=== PATIENT | female | born 1970 | race African-American/Black ===

== ENCOUNTER 2016-07-27 15:27 | Inpatient (IN) | payer OTHER ==
--- NOTE | ~2016-07-27 | DS ---
Unit #: [id number] #: [id number] Patient: GIOVANNI AHMADI [id number] [address] [address] [id number] I MR#: [id number] NAME: GIOVANNI AHMADI ROOM: 572 Age: 45 Sex: F Admission Date: 07/27/2016 : 1970 Discharge Date: 07/29/2016 Attending Physician: Corey Wilson M.D. Primary Care Physician: No Primary Care Physician DISCHARGE SUMMARY REASON FOR ADMISSION Abdominal pain/chest pain. HISTORY OF PRESENT ILLNESS/HOSPITAL COURSE The patient is a 45-year-old female, very pleasant, with a prior history of insulin-dependent diabetes and hypertension. Presented initially with a 5- to 6-day history of increasing abdominal pain, chest pain, as well as intractable nausea, vomiting. She was noted not to have any of her routine medications, including her insulin, for approximately 6 months secondary to insurance issues. She states in the past she had been diagnosed with gastroparesis, as well as secondary to her prior history of insulin-dependent diabetes some sort of kidney issues. She had a prior history of a CVA approximately 15 years ago with some residual left-sided weakness of her hand; otherwise, she states that she was in her usual state of health until several days ago when she began developing the above symptoms. Subsequently she was placed on telemetry floor. Routine initial laboratory studies yielded a hemoglobin A1C elevated to 13.3. Initially she was placed on insulin drip, which was later transitioned into subcu Lantus, as well as medium dose sliding scale. Diet was subsequently initiated, which she tolerated well. Please note she was initially placed on DKA protocol. Initial plan was for the patient to be placed in ICU; however, her blood sugars did improve. Her anion gap closed subsequently; thus, the decision was made for her to be placed on telemetry floor. Please also note the patient was on an insulin pump in the past. Unfortunately, she could not get refills for the insulin pump secondary to insurance reasons. While on telemetry floor, her sugars improved. She was gradually transitioned to a NovoLog/Levemir regimen. Her nausea and vomiting have now improved. She is now tolerating regular diet. We will have care management and/or social work help patient with cost of medications. I will give her prescriptions for Levemir, NovoLog, as well as Reglan, and Norvasc for her blood pressure at time of discharge. I have also asked her to follow up in the transition clinic here within 2 Unit #: [id number] #: [id number] Patient: GIOVANNI AHMADI for Accu-Cheks and/or blood glucose review. At time of discharge her creatinine currently stands at 1.5, likely representing her baseline. Hemoglobin is at 10.6, also likely representing her baseline. Hemoglobin A1C 13.3. FINAL DISCHARGE DIAGNOSES 1. Diabetic ketoacidosis, now resolved. 2. Insulin-dependent diabetes. 3. Noncompliance with medications secondary to insurance or lack thereof. 4. Prior history of diabetic gastroparesis. 5. Prior history of cerebrovascular accident 15 years ago. 6. Residual left-sided weakness. 7. Hypertension. 8. Morbid obesity. FINAL DISCHARGE MEDICATIONS 1. Norvasc 5 mg p.o. q.h.s. 2. Levemir 15 units subcu b.i.d. 3. NovoLog 5 units t.i.d. with meals. 4. Reglan 5 mg p.o. q.a.c. 5. Aspirin 81 mg daily. 6. Protonix 40 mg p.o. daily. 7. Levaquin 500 mg p.o. daily x5 days. NOTE: Initial urinalysis was positive. Urine culture is currently pending. We will follow up with this at the transition clinic. DISCHARGE CONDITION Stable. DISCHARGE DISPOSITION Home. Dictated by... Corey Wilson M.D. REX/radha TD: 07/30/2016 08:02 JOB #: [id number] DISCHARGE SUMMARY Page 1 of 1 X Corey Wilson MD X DISCHARGE SUMMARY
--- NOTE | ~2016-07-27 | EKG ---
PATIENT: GIOVANNI AHMADI UNIT #: [id number] Ventricular Rate: 96 BPM Atrial Rate: 96 BPM P-R Interval: 140 ms QRS Duration: 76 ms Q-T Interval: 368 ms QTC Calculation(Bezet): 464 ms P [place]: 49 degrees Calculated R [place]: 1 degrees Calculated T [place]: 55 degrees Diagnosis Line: Normal sinus rhythm Diagnosis Line: Possible Left atrial enlargement Diagnosis Line: Borderline ECG Diagnosis Line: No previous ECGs available Diagnosis Line: Confirmed by YUNIOR COTA MD ([id number]) on Diagnosis Line: 07/27/2016 10:59:36 PM INTERPRETING MD: DONALD
--- NOTE | ~2016-07-27 | CR72 ---
[facility] A Service of [facility] & [facility] RADIOLOGY TEXT RESULTS PATIENT: GIOVANNI AHMADI LOCATION: [place] [address] : [birth year] UNIT #: [id number] AGE: [address]: Danyell Hernandez MD SEX: F ORDER DR: [id number] [facility] [address] [facility]. [place], [place] [address] [id number] I MR#: [id number] Acc #: [id number] NAME: GIOVANNI AHMADI : 1970 SEX: F STUDY DATE/TIME: 07/27/2016 22:01 UNIT: CEDOF ROOM: 98381 STUDY DESCRIPTION: CR Chest Single View Portable Attending Physician: Danyell Hernandez M.D. Ordering Physician: Danyell Hernandez M.D. Primary Care Physician: Primary Care Physician No MEDICAL IMAGING REPORT This report is preliminary unless electronic signature is present EXAM Chest x-ray, 07/27/16 HISTORY 45-year-old female with reported diabetic ketoacidosis. She complains of a 5-day history of chest pain, shortness of air and abdomen pain. TECHNIQUE AP portable chest x-ray. FINDINGS Heart size and pulmonary vascularity are within normal limits given AP portable technique. The lungs appear clear. No visible pulmonary infiltrate or pleural effusion. IMPRESSION Negative chest. Dictated by... Austyn Maldonado M.D. THIS IS AN ELECTRONICALLY VERIFIED REPORT Austyn Maldonado M.D. at 07/28/2016 6:02 AM JACQUES/melvin TD: 07/28/2016 02:21 JOB #: [id number] MEDICAL IMAGING REPORT Page 1 of 1 COPY
--- NOTE | ~2016-07-27 | HP ---
Unit #: [id number] #: [id number] Patient: GIOVANNI AHMADI [id number] [place], [place] [address] [id number] I MR#: [id number] NAME: GIOVANNI AHMADI ROOM: 94302 Age: 45 Sex: F Admission Date: 07/27/2016 : 1970 Attending Physician: Danyell Hernandez M.D. Primary Care Physician: No Primary Care Physician HISTORY AND PHYSICAL CHIEF COMPLAINT Abdominal pain and chest pain. HISTORY OF PRESENT ILLNESS Miss Ahmadi is a 45-year-old -[place] female with history of a stroke, also a history of insulin dependent diabetes and hypertension, who presents with a five to six day history of abdominal pain and chest pain. Patient states that she developed increasing abdominal pain and chest pain about five to six days ago. She describes her chest pain as squeezing that is constant. She thought she was dehydrated as she has had that before. She also states that she was having abdominal pain with nausea and states she even was vomiting come coffee-ground emesis. She denies any triggering factors, denies any previous illness or any sick contacts. She admits that she lost her insurance about six months ago where she was on an insulin pump and has not been on anything for her diabetes since she lost her insurance six months ago. She denies any polyuria or polydipsia. She admits that she has fallen three times in the past few days because she has been weak and she has been staying in her bed most of thew time. She feels like her left-sided weakness is worse. She admits that about 15 years ago she had a stroke that affected her left side and she states that she has some residual left-sided weakness where she cannot type well because of weakness in her left hand but feels that her left-sided weakness might be a little worse. Again she has not been on any medication. She states a year ago though she did have a stress test with Dr. Carballo, the road gang supervisor, and was told that it was fine. Otherwise she denies any other complaint except that she is just having increasing pain. PAST MEDICAL HISTORY Her past medical history is significant for insulin dependent diabetes where she had been on an insulin pump where she stopped that six months ago. She has a history of diabetic gastroparesis, history of a stroke 15 years ago with some residual left-sided weakness of her hand. She has a history of pancreatitis and hypertension. She has also had a . She has had three arthroscopies on her right knee and she has had her gallbladder removed. ALLERGIES Metformin. HOME MEDICATIONS Her home medications are currently none but she had been on an insulin pump as well as some medications for blood pressure. Unit #: [id number] #: [id number] Patient: GIOVANNI AHMADI FAMILY HISTORY Her family history is significant for diabetes. Her maternal grandfather had a myocardial infarction, maternal grandmother had end-stage renal disease and her mother had breast cancer. SOCIAL HISTORY No tobacco, alcohol or drug use. REVIEW OF SYSTEMS CONSTITUTIONAL: No fevers, chills. Nausea and vomiting as described above. HEENT: No blurred vision. No hearing difficulties, dysphagia or rhinorrhea. PULMONARY: She states that she is having some difficulty breathing with her chest pain but no past medical history of any breathing probes. CARDIOVASCULAR: Again she saw Dr. Carballo a year ago where she had a stress test done and was told it was fine. No history of palpitation. GASTROINTESTINAL: As described above. GENITOURINARY: No dysuria or hematuria. MUSCULOSKELETAL: She states she normally ambulates without the need for a cane or a walker. Again she does have some residual left-sided weakness, particularly of her left hand, from her previous stroke. NEUROLOGIC: No current seizure disorder. No numbness or tingling. Again weakness as described above. ENDOCRINE: Again she is diabetic. No thyroid or adrenal abnormalities. HEMATOLOGIC: No known bleeding or bruising abnormalities. PHYSICAL EXAMINATION VITAL SIGNS: Her temp was 98.4, pulse is 99, respiratory rate is 14. Her blood pressure at the time of her arrival in the ED was 165/117 however while I was talking to her systolic was ranging anywhere from 177 up to 195 over the 1-teens. She was 98% however when she is moving around her O2 sats drop into the 80s and she is on 2 L currently. GENERAL APPEARANCE: She is a 45-year-old -[place] female who is awake, alert, in no acute distress. HEENT: Normocephalic and atraumatic. Extraocular movements are intact. Pupils equal, round and reactive to light and accommodation. Nose and throat within normal limits except her mucous membranes are dry. NECK: Supple. No JVD, bruits or cervical lymphadenopathy. CHEST: Chest has decreased breath sounds bilateral bases. CARDIOVASCULAR: S1, S2 are normal. She has a regular rate and rhythm. ABDOMEN: Abdomen is soft, obese, mildly tender in the epigastrium but no rebound or guarding. EXTREMITIES: Show no cyanosis, clubbing or edema. MUSCULOSKELETAL: She moves all four extremities without difficulty. She does have very slight left-sided director card strength that is weaker than the right. SKIN: She has no visible rashes or lesions though she has some dryness, particularly of her feet. NEUROLOGIC: Neurologically she is oriented x3. Sensory motor appear to be intact. DIAGNOSTIC STUDIES LABORATORY: Her laboratory work includes a sodium of 129, potassium was 4.0, chloride 90, bicarb 27, BUN and creatinine of 21 and 1.5 with a glucose of 525, her calcium was 9.2, total protein 7.9, albumin 3.3, total bilirubin 0.8, AST is 15, ALT is 16, alkaline phosphatase is 131, amylase is 23, lipase is 43. Her troponins were pending at the time of this Unit #: [id number] #: [id number] Patient: GIOVANNI AHMADI. Her white count was 10.2, hemoglobin and hematocrit 14.1 and 42.4 with a platelet count of 405, 76 neutrophils, 15 lymphocytes. Urinalysis revealed positive nitrites, 3+ protein, greater than 1000 glucose, trace ketones, 0.2 urobilinogen, 1+ blood, 4+ bacteria. CARDIOVASCULAR: Her EKG showed a normal sinus rhythm, heart rate in the 90s. She had no ST or T-wave changes. 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 She also has a urinary tract infection, chest pain and abdominal pain. PLAN 1. DKA secondary to insulin dependent diabetes mellitus that is uncontrolled due to noncompliance with medication: Again she was on an insulin pump about six months ago but eason she lost her insurance she has been off all of her medications including her insulin therefore she will need an insulin drip at this point as she has some mild acidosis, will continue her IV fluids, will monitor closely, will check her A1C. 2. Acute kidney injury secondary to volume depletion that was present on admission: Will continue her IV fluids. Will monitor closely. 3. UTI: I will follow up the urine culture that has already been done here in the emergency department. She will continue the IV antibiotics that have been started as well. 4. Hypertension: Will restart blood pressure medications as she states that she stopped her medications again six months ago when she lost her insurance. 5. Abdominal pain with intractable nausea and vomiting secondary to DKA and gastroparesis: Will start IV Reglan. Will control her symptomatically for now. She states she had hematemesis but her hemoglobin is currently normal. Will start a PPI. Will monitor for now. If her abdominal pain continues to persist despite symptomatic treatment as well as correction of her DKA then she may need imaging for further evaluation. 6. Chest pain: She states she has had a stress test at least a year ago with Dr. Carballo that was negative. Her EKG currently is negative however her troponins are pending as they are having difficulty obtaining her labs in the emergency department. Her symptoms could be due to her DKA. However, if her workup with her troponins are negative or her EKG changes she may need a cardiology evaluation. 7. History of CVA: Will monitor for now. Given her history of CVA will go ahead and restart an aspirin, check her lipid profile and correct her sugar. 8. Disposition: I suspect she will likely need help with her medications at the time of discharge as her noncompliance is what prompted this admission. Dictated by Danyell Hernandez M.D. Unit #: [id number] #: [id number] Patient: GIOVANNI AHMADI VIPUL/ja TD: 07/27/2016 23:02 JOB #: [id number] HISTORY AND PHYSICAL Page 1 of 1 X Danyell Hernandez HISTORY AND PHYSICAL
--- NOTE | ~2016-07-27 | BMI ---
[facility] Nutrition Therapy DATE: 07/28/16 Patient: GIOVANNI AHMADI Physician: FREDA Address: [facility] Room/Bed: [address] [place] [address], Zip: [place] [address] Admit Date: 07/27/16 Date of : [birth year] Height: 5 3 Weight: 259 117.9 HIGH BMI NOTE: DX: 45 Y.O. FEMALE ADMITTED FOR DKA, TIM, UTI, ABD PAIN, CP ANTHROPOMETRICS: 5'3", WT: 260# (118 KG), BMI 46 DIET: CONSTANT CARBOHYDRATE INTERVENTION: 1. CONSTANT CARBOHYDRATE DIET RECOMMENDATIONS: 1. ONCE MEDICALLY FEASIBLE, ADD HEALTHY HEART DIET TO CURRENT CONSTANT CARBOHYDRATE DIET TO PROMOTE GRADUAL WEIGHT LOSS TOWARDS A HEALTHY BMI (19.0-25.0). RD WILL F/U PER PROTOCOL Respectfully, PEDRO HERRON, TICKET COLLECTOR OR USHER ESTUARDO GUTIERREZ, RD, LD Food and Nutritional Services [facility] cc: client file
--- NOTE | ~2016-07-27 | CR72 ---
[facility] A Service of [facility] & [facility] RADIOLOGY TEXT RESULTS PATIENT: GIOVANNI AHMADI LOCATION: [place] [address] : 71 UNIT #: [id number] AGE: [address]: Danyell Hernandez MD SEX: F ORDER DR: [id number] [facility] [address] [facility]. [place], [place] [address] [id number] I MR#: [id number] Acc #: [id number] NAME: GIOVANNI AHMADI : 1970 SEX: F STUDY DATE/TIME: 07/28/2016 1:03 UNIT: [facility] ROOM: [facility] STUDY DESCRIPTION: CR Chest Single View Portable Attending Physician: Danyell Hernandez M.D. Ordering Physician: Praedep Jones M.D. Primary Care Physician: Primary Care Physician No MEDICAL IMAGING REPORT This report is preliminary unless electronic signature is present EXAM Chest x-ray 07/28/2016 HISTORY PICC placement. Diabetic ketoacidosis. TECHNIQUE AP portable chest x-ray. FINDINGS Newly placed right arm PICC is in good position with tip in the uppermost SVC. No change since the earlier exam. The lungs remain clear. IMPRESSION PICC in good position. Dictated by... Austyn Maldonado M.D. THIS IS AN ELECTRONICALLY VERIFIED REPORT Austyn Maldonado M.D. at 07/28/2016 6:04 AM JACQUES/heike TD: 07/28/2016 05:56 JOB #: [id number] MEDICAL IMAGING REPORT Page 1 of 1 COPY
[2016-07-27 16:30] LABS: URINE SOURCE CLEAN CATCH
[2016-07-27 16:37] LABS: URINE APPEARANCE CLOUDY; URINE BILIRUBIN NEG (NEG); URINE BLOOD 1+ (NEG); URINE COLOR YELLOW; URINE GLUCOSE >1000 MG/DL (NEG); URINE KETONE TRACE (NEG); URINE LEUKOCYTE ESTERASE NEG (NEG); URINE NITRATE POS (NEG); URINE PH 6.5 (5-8); URINE PROTEIN 3+ (NEG); URINE SPECIFIC GRAVITY 1.038 (1.003-1.035); URINE UROBILINOGEN 0.2 MG/DL (NEG)
[2016-07-27 16:40] LABS: CULTURE INDICATED? YES; URINE BACTERIA AUWI 4+ (NEGATIVE); URINE SQUAMOUS EPITHELIAL CELL MOD /[HPF]; UWBCS1 AUWI 50-100 (0-5)
[2016-07-27 17:37] LABS: BASOPHIL# 0.1 X10e3 (0-0.3); BASOPHIL% 0.7 % (0-2.5); EOSINOPHIL% 0.1 % (0.0-7.0); HEMATOCRIT 42.4 % (35.0-45.0); HEMOGLOBIN 14.1 gm/dL (12.0-16.0); LYMPHOCYTE# 1.5 X10e3 (1.0-3.5); LYMPHOCYTE% 15.2 % (17.0-45.0); MEAN CELL VOLUME 90.6 FL (83-96); MEAN CORPUSCULAR HEMOGLOBIN 30.1 PG (28-34); MEAN CORPUSCULAR HGB CONC 33.2 g/dL (30-36); MEAN PLATELET VOLUME 9.1 FL (6.5-11.5); MONOCYTE# 0.8 X10e3 (0-1.0); MONOCYTE% 8.1 % (3.0-12.0); NEUTROPHIL# 7.7 X10e3 (1.5-7.1); NEUTROPHIL% 75.9 % (40-75); PLATELET COUNT 405 X10e3 (140-420); RED BLOOD COUNT 4.68 X10e (3.90-5.30); RED CELL DISTRIBUTION WIDTH 13.2 % (11.0-15.5); WHITE BLOOD COUNT 10.2 X10e3 (4.0-10.5)
[2016-07-27 17:42] LABS: DIFF IND NO
[2016-07-27 18:03] LABS: ALBUMIN SERUM 3.3 g/dL (3.5-5.0); BILIRUBIN, DIRECT 0.1 mg/dL (0.0-0.2); BILIRUBIN,INDIRECT 0.7 mg/dL (0.0-0.9); BILIRUBIN,TOTAL 0.8 mg/dL (0.2-2.0); CALCIUM SERUM 9.2 mg/dL (8.4-10.2); CREATININE SERUM 1.5 mg/dL (0.6-1.4); GLOM FILT RATE Estimated 48.6 mL/min (>60); PROTEIN TOTAL SERUM 7.9 g/dL (6.0-8.3)
[2016-07-27 21:41] LABS: CK TOTAL 57 IU/L (26-140)
[2016-07-28 01:01] LABS: BUN/CREATININE RATIO 13.57; CALCIUM SERUM 8.4 mg/dL (8.4-10.2); CREATININE SERUM 1.4 mg/dL (0.6-1.4); GLOM FILT RATE Estimated 52.8 mL/min (>60); PHOSPHOROUS 2.3 mg/dL (2.5-4.6); POTASSIUM 4.2 mmol/L (3.5-5.1)
[2016-07-28 07:16] LABS: BASOPHIL# 0.1 X10e3 (0-0.3); BASOPHIL% 0.9 % (0-2.5); EOSINOPHIL# 0.1 X10e3 (0-0.7); EOSINOPHIL% 0.5 % (0.0-7.0); HEMATOCRIT 37.4 % (35.0-45.0); HEMOGLOBIN 12.3 gm/dL (12.0-16.0); LYMPHOCYTE# 2.4 X10e3 (1.0-3.5); LYMPHOCYTE% 23.4 % (17.0-45.0); MEAN CELL VOLUME 90.3 FL (83-96); MEAN CORPUSCULAR HEMOGLOBIN 29.7 PG (28-34); MEAN CORPUSCULAR HGB CONC 32.9 g/dL (30-36); MEAN PLATELET VOLUME 8.9 FL (6.5-11.5); MONOCYTE# 0.9 X10e3 (0-1.0); MONOCYTE% 9.4 % (3.0-12.0); NEUTROPHIL# 6.6 X10e3 (1.5-7.1); NEUTROPHIL% 65.8 % (40-75); PLATELET COUNT 324 X10e3 (140-420); RED BLOOD COUNT 4.14 X10e (3.90-5.30); RED CELL DISTRIBUTION WIDTH 13.1 % (11.0-15.5)
[2016-07-28 07:22] LABS: DIFF IND NO
[2016-07-28 08:10] LABS: BLOOD UREA NITROGEN 18 mg/dL (9-23); CALCIUM SERUM 8.2 mg/dL (8.4-10.2); CARBON DIOXIDE 24 mmol/L (22-31); CHLORIDE 101 mmol/L (100-111); CHOLESTEROL 322 mg/dL (0-200); CREATININE SERUM 1.2 mg/dL (0.6-1.4); GLOM FILT RATE Estimated 63.7 mL/min (>60); GLUCOSE FASTING 242 mg/dL (70-110); HDL CHOLESTEROL 35 mg/dL (35-95); POTASSIUM 3.8 mmol/L (3.5-5.1); SODIUM 134 mmol/L (135-145)
[2016-07-28 08:11] LABS: TRIGLYCERIDES 410 mg/dL (10-160)
[2016-07-29 05:30] LABS: HEMATOCRIT 31.9 % (35.0-45.0); HEMOGLOBIN 10.6 gm/dL (12.0-16.0); MEAN CORPUSCULAR HEMOGLOBIN 29.9 PG (28-34); MEAN CORPUSCULAR HGB CONC 33.3 g/dL (30-36); MEAN PLATELET VOLUME 8.6 FL (6.5-11.5); RED BLOOD COUNT 3.55 X10e (3.90-5.30); RED CELL DISTRIBUTION WIDTH 13.2 % (11.0-15.5); WHITE BLOOD COUNT 9.8 X10e3 (4.0-10.5)
[2016-07-29 05:53] LABS: BUN/CREATININE RATIO 13.33; CALCIUM SERUM 7.1 mg/dL (8.4-10.2); CREATININE SERUM 1.5 mg/dL (0.6-1.4); GLOM FILT RATE Estimated 48.6 mL/min (>60); POTASSIUM 3.5 mmol/L (3.5-5.1)
[2016-07-29] MEDS ORDERED: PROTONIX PO (09:22)
[2016-07-29] MEDS ORDERED: LEVEMIR100 UNITS/ SUBQ (09:23)
[2016-07-29] MEDS ORDERED: NOVOLOG100 UNITS/ SUBQ (09:24)
[2016-07-29] MEDS ORDERED: NORVASC PO (09:24)
[2016-07-29] MEDS ORDERED: REGLAN5 MG PO (09:25)
[2016-07-29] MEDS ORDERED: ACETAMINOPHEN PO (13:24)
[2016-07-29] MEDS ORDERED: BAYER CHEWABLE81 MG PO (13:26)
[2016-07-29] MEDS ORDERED: LEVAQUIN PO (13:27)
== END 2016-07-29 14:36 | disposition home or self-care (01) | DRG 638 ==
LOC: CED 15:27 → C5C 21:13 → CEDOF 21:13 → CED 21:33 → CEDOF 07-28 04:05 → C5C 07-28 04:05
PROVIDERS: Emergency Medicine; Family Medicine; Internal Medicine
PROC: 02HV33Z Insertion of Infusion Device into Superior Vena Cava, Percutaneous Approach (ICD-10-PCS; principal; 2016-07-27)
DX: E10.10 Type 1 diabetes mellitus with ketoacidosis without coma (principal); N17.9 Acute kidney failure, unspecified; K31.84 Gastroparesis; E10.43 Type 1 diabetes mellitus with diabetic autonomic (poly)neuropathy; N39.0 Urinary tract infection, site not specified; R07.9 Chest pain, unspecified; Z86.73 Personal history of transient ischemic attack (TIA), and cerebral infarction without residual deficits; Z79.4 Long term (current) use of insulin; I10 Essential (primary) hypertension; E86.9 Volume depletion, unspecified; Z91.14 Patient's other noncompliance with medication regimen
CPT/HCPCS: 36415; 71010; 80048; 80061; 80076; 81003; 82150; 82550; 82947; 83036; 83690; 84100; 84484; 84703; 85025; 85027; 87040; 87086; 87088; 87186; 93005; 96361; 96374; 99285; C9113; J0360; J0696; J1650; J1815; J2270; J2405; J2765

== ENCOUNTER 2016-09-06 00:06 | Emergency (ER) | payer OTHER ==
[~2016-09-06] VITALS: Ht 160 cm; Wt 120.7 kg
--- NOTE | ~2016-09-06 | CR63 ---
[facility] A Service of [facility] & [facility] RADIOLOGY TEXT RESULTS PATIENT: GIOVANNI AHMADI LOCATION: [facility] : [birth year] UNIT #: [id number] AGE: [address]: Dillan Thornton MD SEX: F ORDER DR: [id number] [facility] [address] [facility]. [place], [place] [address] [id number] E MR#: [id number] Acc #: [id number] NAME: GIOVANNI AHMADI : 1970 SEX: F STUDY DATE/TIME: 09/06/2016 3:24 UNIT: [facility] ROOM: STUDY DESCRIPTION: CR Chest 2 View Attending Physician: Dillan Thornton M.D. Ordering Physician: Pradeep Jones M.D. MEDICAL IMAGING REPORT This report is preliminary unless electronic signature is present EXAM Two-view chest INDICATIONS Chest pain for the past 2-3 days. TECHNIQUE Frontal and lateral views of the chest. COMPARISON STUDIES 07/28/2016. FINDINGS Stable cardiomegaly. No dense consolidation, pleural fluid or pneumothorax. IMPRESSION No active process. Stable cardiomegaly. Dictated by... Jacky Domínguez M.D. THIS IS AN ELECTRONICALLY VERIFIED REPORT Jacky Domínguze M.D. at 09/06/2016 10:25 PM EED/pcl TD: 09/06/2016 09:49 JOB #: [id number] MEDICAL IMAGING REPORT Page 1 of 1 COPY
--- NOTE | ~2016-09-06 | EKG ---
PATIENT: GIOVANNI AHMADI UNIT #: [id number] Ventricular Rate: 95 BPM Atrial Rate: 95 BPM P-R Interval: 164 ms QRS Duration: 68 ms Q-T Interval: 362 ms QTC Calculation(Bezet): 454 ms P [place]: 54 degrees Calculated R [place]: 29 degrees Calculated T [place]: 79 degrees Diagnosis Line: Normal sinus rhythm Diagnosis Line: Normal ECG Diagnosis Line: When compared with ECG of 27-JUL-2016 19:04, Diagnosis Line: No significant change was found Diagnosis Line: Confirmed by MADELINE FLORENCE MD ([id number]) on Diagnosis Line: 09/06/2016 5:42:39 PM INTERPRETING MD: LUDIVINA BREEN
[~2016-09-06 00:06] MED LIST: ACETAMINOPHEN PO; BAYER CHEWABLE81 MG PO; LEVAQUIN PO; LEVEMIR100 UNITS/ SUBQ; NORVASC PO; NOVOLOG100 UNITS/ SUBQ; PROTONIX PO; REGLAN5 MG PO
[2016-09-06 02:03] LABS: BASOPHIL# 0.1 X10e3 (0-0.3); EOSINOPHIL% 0.1 % (0.0-7.0); HEMATOCRIT 35.3 % (35.0-45.0); LYMPHOCYTE# 1.3 X10e3 (1.0-3.5); LYMPHOCYTE% 12.6 % (17.0-45.0); MEAN CELL VOLUME 88.9 FL (83-96); MEAN CORPUSCULAR HEMOGLOBIN 30.2 PG (28-34); MEAN PLATELET VOLUME 8.9 FL (6.5-11.5); MONOCYTE# 0.2 X10e3 (0-1.0); MONOCYTE% 2.3 % (3.0-12.0); NEUTROPHIL# 8.9 X10e3 (1.5-7.1); PLATELET COUNT 359 X10e3 (140-420); RED BLOOD COUNT 3.98 X10e (3.90-5.30); RED CELL DISTRIBUTION WIDTH 13.3 % (11.0-15.5); WHITE BLOOD COUNT 10.5 X10e3 (4.0-10.5)
[2016-09-06 02:04] LABS: DIFF IND NO
[2016-09-06 02:22] LABS: POC - CKMB 5.4 ng/mL (0.0-7.9); POC - TROPONIN <0.05 ng/mL (<=0.05)
[2016-09-06 02:37] LABS: ALBUMIN SERUM 3.2 g/dL (3.5-5.0); BILIRUBIN, DIRECT 0.1 mg/dL (0.0-0.2); BILIRUBIN,INDIRECT 0.7 mg/dL (0.0-0.9); BILIRUBIN,TOTAL 0.8 mg/dL (0.2-2.0); CREATININE SERUM 1.2 mg/dL (0.6-1.4); GLOM FILT RATE Estimated 63.7 mL/min (>60); POTASSIUM 4.2 mmol/L (3.5-5.1); PROTEIN TOTAL SERUM 7.4 g/dL (6.0-8.3)
[2016-09-06 07:44] LABS: POC - TROPONIN <0.05 ng/mL (<=0.05)
== END 2016-09-06 09:13 | disposition home or self-care (01) ==
LOC: CED 00:06
PROVIDERS: Emergency Medicine
DX: R07.89 Other chest pain (principal); R11.2 Nausea with vomiting, unspecified; R06.02 Shortness of breath; E11.65 Type 2 diabetes mellitus with hyperglycemia; Z86.73 Personal history of transient ischemic attack (TIA), and cerebral infarction without residual deficits; Z98.890 Other specified postprocedural states; Z79.84 Long term (current) use of oral hypoglycemic drugs; Z79.4 Long term (current) use of insulin; Z79.899 Other long term (current) drug therapy; Z79.82 Long term (current) use of aspirin
CPT/HCPCS: 36415; 71020; 80048; 80076; 82553; 84484; 85025; 93005; 96361; 96374; 96375; 96376; 99285; J2270; J2405; J2765

== ENCOUNTER 2016-09-09 11:21 | Observation (INO) | payer OTHER ==
[~2016-09-09] VITALS: Ht 160 cm; Wt 118.0 kg
--- NOTE | ~2016-09-09 | CR63 ---
[facility] A Service of [facility] RADIOLOGY TEXT RESULTS PATIENT: GIOVANNI AHMADI LOCATION: [facility] 339-01 : [birth year] UNIT #: [id number] AGE: [address]: Theresa Walker MD SEX: F ORDER DR: [id number] [facility] [address] [facility]. [place], [place] [address] [id number] I MR#: [id number] Acc #: [id number] NAME: GIOVANNI AHMADI : 1970 SEX: F STUDY DATE/TIME: 09/09/2016 14:55 UNIT: CEDOF ROOM: 56160 STUDY DESCRIPTION: CR Chest 2 View Attending Physician: Michaela Garvin M.D. Ordering Physician: Heather Davison M.D. Primary Care Physician: No Primary Care Physician MEDICAL IMAGING REPORT This report is preliminary unless electronic signature is present EXAM Two views of the chest. COMPARISON September 06, 2016 and July 28, 2016. INDICATIONS 45-year-old female with chest pain, nausea, emesis and dizziness for 1 week. FINDINGS Frontal view is limited by the apical lordotic technique. There is no evidence of pneumothorax or significant pleural effusion. Soft tissue shadow and cardiac shadow noted over the left lung base. No convincing evidence of acute airspace disease. No evidence of pleural effusion or pneumothorax. Cardiomediastinal silhouette is within normal limits. IMPRESSION Exam is significantly limited by positioning and patient body habitus. No acute radiographic abnormality of the chest is seen. Normal heart size. Dictated by... John Paul M.D. THIS IS AN ELECTRONICALLY VERIFIED REPORT John Paul M.D. at 09/14/2016 1:49 PM TERI/neha TD: 09/09/2016 22:23 JOB #: [id number] MEDICAL IMAGING REPORT [facility] A Service [facility] RADIOLOGY TEXT RESULTS PATIENT: GIOVANNI AHMADI LOCATION: [facility] 339-01 : [birth year] UNIT #: [id number] AGE: [address]: Theresa Walker MD SEX: F ORDER DR: Page 1 of 1 COPY
--- NOTE | ~2016-09-09 | BMI ---
[facility] Nutrition Therapy DATE: 09/10/16 Patient: GIOVANNI AHMADI Physician: AI Address: [address] [place] [address] Room/Bed: [address] [place] [address], Zip: [place] [address] Admit Date: 09/09/16 Date of : [birth year] Height: 5 3 Weight: 260 118 HIGH BMI NOTE: DX: 45 y/o female admitted with SOA ANTHROPOMETRICS: Ht: 63", Wt: 118 kg, BMI: 46 (stage III obese) DIET: NPO INTERVENTION: Restricted diet, meds/fluids per MD RECOMMENDATIONS: 1. Once medically feasible advance to consistent carb/healthy heart diet due to hx of diabetes and to promote a gradual weight loss towards a healthy BMI range. Respectfully, Brenda Markham RD, LD Food and Nutritional Services [facility] cc: client file
--- NOTE | ~2016-09-09 | XA166 ---
[facility] A Service of [facility] RADIOLOGY TEXT RESULTS PATIENT: GIOVANNI AHMADI LOCATION: [facility] 339-01 : [birth year] UNIT #: [id number] AGE: [address]: Theresa Walker MD SEX: F ORDER DR: [id number] [place] [id number] [place], [place] [address] [id number] I MR#: [id number] Acc #: [id number] NAME: GIOVANNI AHMADI : 1970 SEX: F STUDY DATE/TIME: 09/09/2016 16:21 [facility] ROOM: 339 STUDY DESCRIPTION: XA PICC Line Placement WO Port Attending Physician: Michaela Garvin M.D. Ordering Physician: Heather Davison M.D. Primary Care Physician: Primary Care Physician No MEDICAL IMAGING REPORT This report is preliminary unless electronic signature is present EXAM PICC line insertion INDICATION 45-year-old female who needs IV access. PRE-PROCEDURE The procedure was explained to the patient and/or patient door to door sales representative including risks, benefits, potential complications and potential for alternative forms of treatment. Informed consent was obtained, and prior to initiating the procedure a formal timeout procedure was performed. PROCEDURE Using full standard sterile barrier technique, including caps, gowns, gloves, masks, as well as sterile skin preparation and standard sterile draping, the left arm was prepped and draped in the usual fashion, and real-time sterile ultrasound guidance was used to localize a left basilic vein and to confirm vessel patency. A hard copy ultrasound image was recorded. After local anesthesia with 1% Xylocaine, the vein was punctured using real-time sterile ultrasound guidance, and an 0.018 guidewire was advanced into the superior vena cava, using fluoroscopic guidance. A 5 [place] 42 cm double-lumen PICC was then measured and deployed with the tip positioned in the superior vena cava. The position of the line was documented with a radiographic image. The line was secured in place with an adhesive dressing and an antibiotic patch was applied. Total fluoro time was 0.3 minutes. One fluoroscopic spot image was taken. IMPRESSION Successful left arm PICC line placement. [facility] A Service of [facility] RADIOLOGY TEXT RESULTS PATIENT: GIOVANNI AHMADI LOCATION: [facility] 339-01 : [birth year] UNIT #: [id number] AGE: [address]: Theresa Walker MD SEX: F ORDER DR: Dictated by... Jun Lara M.D. THIS IS AN ELECTRONICALLY VERIFIED REPORT Jun Lara M.D. at 09/11/2016 4:01 PM DARCY/sobeidar TD: 09/10/2016 02:06 JOB #: [id number] MEDICAL IMAGING REPORT Page 1 of 1 COPY
--- NOTE | ~2016-09-09 | HP ---
Unit #: [id number] #: [id number] Patient: GIOVANNI AHMADI [id number] [place], [place] [address] [id number] I MR#: [id number] NAME: GIOVANNI AHMADI ROOM: 59368 Age: 45 Sex: F Admission Date: 09/09/2016 : 1970 Attending Physician: Michaela Garvin M.D. HISTORY AND PHYSICAL CHIEF COMPLAINT Shortness of air, pain with inhalation. HISTORY OF PRESENT ILLNESS The patient is a 45-year-old female with a past medical history of gastroparesis, diabetes, cerebrovascular accident, pancreatitis, and hypertension, who presented to the emergency department for evaluation of the above. The patient states she has been having chest pain since September 05, 2016. She states that it is in the mid chest. She describes it as "sharp" and "squeezing." It has been intermittent in nature. There are no exacerbating or alleviating factors. She states that it typically lasts a few minutes and resolves spontaneously. She states that it has radiated to both arms. She has also associated shortness of breath and diaphoresis. She has had similar pain in the past that she has attributed to gastroparesis. She has also had nausea and vomiting for the past couple of days. She reports more than 10 bouts of nonbloody emesis within the past 24 hours. She denies any diarrhea and no urinary symptoms. She has had intermittent abdominal pain. In the emergency department, laboratory is notable for BUN and creatinine of 30 and 1.5, respectively, and glucose is 367. EKG showed normal sinus rhythm with a rate of 93 beats per minute. A V/Q scan was low probability for PE. Initial troponin is negative. She is being admitted to [facility] for evaluation and further treatment. PAST MEDICAL HISTORY 1. Admission to [facility] July 27-2016, for DKA. 2. Diabetes. The patient was previously on an insulin pump. The patient's hemoglobin A1c was 13.3 on July 28, 2016. 3. Gastroparesis. 4. 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 5. Pancreatitis. 6. Hypertension. PAST SURGICAL HISTORY 1. section. 2. Arthroscopic surgery of the right knee. 3. Cholecystectomy. SOCIAL HISTORY The patient lives with her and two children. There is no tobacco or alcohol use. She denies illicit drug use. 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 FAMILY HISTORY Notable for her mother having hypertension. ALLERGIES Metformin. HOME MEDICATIONS 1. Reglan. 2. Levemir. 3. NovoLog. Home medications will need to be reviewed and verified. REVIEW OF SYSTEMS A complete review of systems is negative except as indicated in the History of Present Illness. PHYSICAL EXAMINATION VITAL SIGNS: Temperature is 98.2, pulse 94, respirations 16, blood pressure 219/124, most recently 188/98, and oxygen saturation 100% on room air. GENERAL: Patient is an female who is sleeping but wakes to voice. HEENT: Head is atraumatic. Mucous membranes are dry. NECK: Supple. Trachea is midline. CARDIOVASCULAR: Regular rate and rhythm. LUNGS: Clear to auscultation bilaterally with no increased work of breathing. ABDOMEN: Obese, soft, and nontender with bowel sounds present in all four quadrants. EXTREMITIES: Nontender with no pedal edema. NEUROLOGIC: Patient is awake and alert. She follows commands. PSYCHIATRIC: Mood and affect are normal. Patient is cooperative. SKIN: Skin of examined areas is warm and dry. DIAGNOSTIC STUDIES LABORATORY: Complete blood count is completely normal. Troponin is less than 0.05. INR is 0.9. BNP is 35. Comprehensive metabolic panel notable for a sodium of 132, chloride 96, glucose 367, BUN and creatinine 30 and 1.5, respectively, alkaline phosphatase 111, and albumin 3.4. Lipase is 67. Magnesium is 1.8. Alcohol level is less than 5. Beta hCG is negative. IMAGING: Chest x-ray showed no acute abnormality. V/Q scan was low probability for PE. CARDIOLOGY: EKG shows normal sinus rhythm with a rate of 93 beats per minute. ASSESSMENT The patient is a 45-year-old female with: 1. Chest pain. The patient states that she has had a stress test. She said that it was here at [facility]. I do not see any report in [facility]. However, per the History and Physical from July 27, 2016, the patient had a stress test with Dr. Carballo about a year ago (no records). Initial EKG and cardiac Unit #: [id number] #: [id number] Patient: GIOVANNI AHMADI enzymes are negative. A ventilation/perfusion scan was low probability for pulmonary embolism. 2. Nausea and vomiting likely secondary to gastroparesis. 3. History of gastroparesis. 4. Acute kidney injury. The patient's creatinine was 1.2 on September 06, 2016. It is 1.5 today. She has had vomiting. 5. Uncontrolled diabetes. The patient's hemoglobin A1c was 13.3 on July 28, 2016. Glucose today is 367. 6. History of cerebrovascular accident with residual hand weakness. 7. History of pancreatitis. The patient's lipase is 67 today. Amylase is normal. 8. Hypertension. 9. Morbid obesity with a body mass index of 47. PLAN 1. Admit to intermediate level for observation. 2. Normal saline at 75 mL/hour. 3. Advance diet to clear liquids as tolerated. 4. N.p.o. after midnight for possible stress test. 5. Fasting lipid panel. 6. Serial cardiac enzymes. 7. Consult Dr. Hdez regarding chest pain. 8. P.r.n. Zofran. 9. P.r.n. morphine. 10. Reglan. 11. Low-dose sliding scale insulin with Accu-Cheks. 12. Check urinalysis and urine tox screen. 13. Strict I/Os. 14. Repeat labs in the morning including amylase and lipase. 15. SCDs for DVT prophylaxis. 16. Additional workup and consultants based on above. 17. 1. Dictated by Corina Pena/nika TD: 09/09/2016 21:37 JOB #: [id number] HISTORY AND PHYSICAL Page 1 of 1 X Michaela Garvin MD X HISTORY AND PHYSICAL
--- NOTE | ~2016-09-09 | NM69 ---
[facility] A Service of [facility] RADIOLOGY TEXT RESULTS PATIENT: GIOVANNI AHMADI LOCATION: [facility] 339-01 : [birth year] UNIT #: [id number] AGE: [address]: Theresa Walker MD SEX: F ORDER DR: [id number] [facility] [address] [facility]. [place], [place] [address] [id number] MR#: [id number] Acc #: [id number] NAME: GIOVANNI AHMADI : 1970 SEX: F STUDY DATE/TIME: 09/09/2016 17:59 UNIT: [address] ROOM: [facility] STUDY DESCRIPTION: NM Pulm Vent and Perf Attending Physician: Michaela Garvin M.D. Ordering Physician: Heather Davison M.D. Primary Care Physician: Primary Care Physician No MEDICAL IMAGING REPORT This report is preliminary unless electronic signature is present EXAM Ventilation perfusion lung scan 09/09/2016 HISTORY 45-year-old female with chest pain and shortness of air for 1 week. Radiopharmaceutical 34.5 mCi technetium DTPA given by inhalation. 4.85 mCi technetium MAA given IV. Correlation is made to chest x-ray 09/09/2016 FINDINGS There is uniform ventilation and perfusion radiotracer uptake throughout both lungs. No mismatched ventilation-perfusion defects. IMPRESSION Negative ventilation-perfusion lung scan Dictated by... Obi Gilbert M.D. THIS IS AN ELECTRONICALLY VERIFIED REPORT Obi Gilbert M.D. at 09/10/2016 3:57 PM ANA LILIA/adolph TD: 09/10/2016 04:15 JOB #: [id number] MEDICAL IMAGING REPORT Page 1 of 1 COPY
--- NOTE | ~2016-09-09 | CO ---
Unit #: [id number] #: [id number] Patient: GIOVANNI AHMADI [id number] [facility]. [place], [place] [address] [id number] I MR#: [id number] NAME: GIOVANNI AHMADI ROOM: 339 Age: 45 Sex: F Admission Date: 09/09/2016 : 1970 Attending Physician: Theresa Walker M.D. Primary Care Physician: Karly Primary Care Physician Consultation Date: 09/10/2016 CONSULTATION REPORT CHIEF COMPLAINT Intractable nausea, vomiting, and intermittent chest pain. HISTORY OF PRESENT ILLNESS The patient is a 45-year-old -[place] female, who has seen Dr. Carballo at [facility] in the past. On June 13, 2016, patient had a cardiac catheterization which showed normal coronaries. The patient reported that she did have an abnormal stress test prior to that cardiac catheterization. She endorses that she has a past medical history of intermittent chest pain, hypertension, diabetes with gastroparesis and peripheral neuropathy, a history of DKA, pancreatitis, obstructive sleep apnea for which she refuses to wear her CPAP machine, and a CVA 13 years ago secondary to control which has left her with left-sided weakness. She is a nonsmoker and she is morbidly obese with a BMI greater than 40. Patient reports that she has been having intermittent chest pain since Monday, September 05, 2016. She states that the chest pain is midsternal and describes it to me as a squeezing and heaviness pain that can last minutes to hours. It occasionally is associated with bilateral arm pain and some mild shortness of breath. She denies any diaphoresis. The worst the pain felt was a 9/10. She has had multiple episodes of this pain. She reports that the pain can last anywhere from minutes to hours. Patient endorses that eating can make her pain feel better. The patient reports that she sleeps on two pillows at night and does wake up out of her sleep short of breath. She informs me that she did have a sleep study approximately one year ago and opted to not use a CPAP machine. The patient also states that her insurance changed one year ago and that she does not have coverage. In the emergency department, laboratory was notable for elevated BUN and creatinine. Her EKG showed normal sinus rhythm with a rate of 93 beats per minute. Troponin was found to be negative. A V/Q scan was done which showed low probability for PE. Patient was admitted to [facility] for further workup. Cardiology was consulted for intermittent chest pain. PAST MEDICAL HISTORY 1. June 13, 2016, cardiac catheterization per Dr. Carballo at [facility] showed normal coronaries. 2. Abnormal stress test in May 2016. 3. Hypertension. 4. Hyperlipidemia. 5. Diabetes with gastroparesis and peripheral neuropathy. Unit #: [id number] #: [id number] Patient: GIOVANNI AHMADI 6. History of DKA. 7. History of CVA 13 years ago secondary to control with residual left-sided weakness and left foot drop. 8. Obstructive sleep apnea. 9. Morbid obesity with a BMI greater than 40. PAST SURGICAL HISTORY 1. . 2. Arthroscopic surgery of the right knee. 3. Cholecystectomy. ALLERGIES Glucophage, patient states that she experiences intractable vomiting when she takes this. HOME MEDICATIONS 1. Protonix 40 mg p.o. daily. 2. Levemir 15 units subcutaneous b.i.d. 3. NovoLog 5 units subcutaneous three times daily before meals. 4. Norvasc 5 mg p.o. daily. 5. Reglan 5 mg p.o. three times daily before meals. 6. Tylenol 650 mg p.o. q.6 hours p.r.n. pain. 7. Aspirin 81 mg p.o. daily. FAMILY HISTORY The patient states that her mother had hypertension. SOCIAL HISTORY The patient denies tobacco, alcohol, and illicit drug abuse. 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 REVIEW OF SYSTEMS A 10-point review of systems has been done and is considered otherwise negative unless indicated in the HPI. PHYSICAL EXAMINATION GENERAL: The patient is awake, alert, in no acute distress. VITAL SIGNS: Temperature 98, heart rate 88, respirations 20, blood pressure 148/76. He is oxygenating 92%. HEENT: Head is atraumatic, normocephalic. Pupils equal, round, and reactive. Extraocular movements are intact. No drainage from ears or nares. NECK: Supple. Trachea is midline. No lymphadenopathy or thyromegaly is appreciated. Normal carotid upstrokes. CHEST: Lungs are clear to auscultation bilaterally. No wheezes, rales, or rhonchi. CARDIOVASCULAR: S1, S2. Regular rate and rhythm. No murmurs, rubs, or gallops appreciated. ABDOMEN: Soft, nontender, nondistended. Bowel sounds are positive in all four quadrants. SKIN: Appears to be warm, dry, intact without unusual rashes or lesions. EXTREMITIES: No clubbing, edema, or cyanosis. NEUROLOGIC: The patient is alert and oriented x4. She is pleasant and conversant. No focal deficits. Cranial nerves II-XII appear to be intact. DIAGNOSTIC STUDIES Unit #: [id number] #: [id number] Patient: GIOVANNI AHMADI LABORATORY: White blood cells 11.6, hemoglobin 9.4, hematocrit 28.6, platelets 243,000. Sodium 137, potassium 3.5, chloride 106, CO2 of 23, BUN 30, creatinine 1.7, glucose 277. Troponin 0.04 x2. IMAGING: V/Q scan shows low probability for PE. CARDIOVASCULAR: EKG shows normal sinus rhythm for age, 93 beats per minute. ASSESSMENT 1. Noncardiac chest pain. 2. Intractable nausea and vomiting, secondary to #3. 3. Diabetes with gastroparesis. 4. Peripheral neuropathy, secondary to diabetes. 5. Acute kidney injury. 6. Hypertension. 7. Hyperlipidemia. 8. Sleep apnea, noncompliant with CPAP machine. 9. History of cerebrovascular accident, secondary to control pills with residual left-sided weakness. 10. Nonsmoker. PLAN At this time, I have discussed this case with Dr. Real Hdez. He has reviewed the records from [facility] and noted that the patient had a normal cardiac catheterization on May 2016. The patient was started on Lipitor 40 mg p.o. daily. Patient is okay to eat from a cardiac standpoint and we will see the patient p.r.n. Please call if needed. Dictated by... Liza Cesar A.P.R.N. for Corina Gray TD: 09/10/2016 11:31 JOB #: [id number] CONSULTATION REPORT Page 1 of 1 X Liza Cesar APRN CONSULTATION REPORT
--- NOTE | ~2016-09-09 | DS ---
Unit #: [id number] #: [id number] Patient: GIOVANNI AHMADI [id number] [place], [place] [address] [id number] I MR#: [id number] NAME: GIOVANNI AHMADI ROOM: 339 Age: 45 Sex: F Admission Date: 09/09/2016 : 1970 Discharge Date: 09/10/2016 Attending Physician: Theresa Walker M.D. Primary Care Physician: No Primary Care Physician DISCHARGE SUMMARY HOSPITAL COURSE This 45-year-old female was admitted in the hospital with chest pain. Details are as per admission H and P. The patient was seen by Dr. Real Hdez in consultation. The patient had a stress test done recently, which was negative. The patient also had a cardiac cath done at [facility], which did not reveal any blockage. Therefore, Dr. Hdez is not planning any further workup and has recommended that the patient can be discharged home. The patient also had a VQ scan done, which was negative, and chest x-ray did not reveal any acute radiographic abnormality in the chest. Exam was limited by the patient's positioning and body habitus. I called and discussed with Dr. Hdez, who has recommended that the patient's pain is musculoskeletal. Chronic kidney disease. The patient has creatinine of 1.7, but her creatinine has been elevated in the past. It was 1.5 in July 2016 on discharge. She is advised to follow up with her family doctor, Dr. Sherman, for further workup of chest pain and chronic kidney disease. The patient's total cholesterol was 309, triglycerides were 188, LDL was 215, HDL 56. Therefore, Lipitor was initiated. Her LFTs, AST and ALT are normal. RECOMMENDATIONS ON DISCHARGE 1. Condition is stable. 2. Activity is as tolerated. DISCHARGE MEDICATIONS 1. Tylenol 650 mg p.o. q.6 hours p.r.n.. 2. Norvasc 5 mg p.o. daily. 3. Lipitor 40 mg p.o. q.h.s. 4. NovoLog 5 units subcu t.i.d. with meals. 5. Levemir 15 units subcu b.i.d. 6. Reglan 5 mg p.o. t.i.d. before meals. 7. Enteric-coated aspirin 81 mg p.o. daily. 8. Protonix 40 mg p.o. daily. FOLLOWUP/RECOMMENDATIONS 1. The patient is advised to follow up with primary care physician in 1 week, and the patient is also advised to have LFTs and fasting lipid profile done with primary care physician in 6 weeks. 2. The patient is advised to call primary care physician or go to ER if her condition changes. 3. Please make note that the patient will need workup for chronic kidney Unit #: [id number] #: [id number] Patient: OGAGBA,JACQUETTA disease, which is most likely secondary to diabetes. 4. The patient was advised to have Accu-Cheks a.c. and q.h.s. and call primary care physician if less than 80 or greater than 350. NOTE: The plan was discussed in detail with the patient, who showed complete understanding. I also called and discussed the plan with Dr. Real dHez. Dictated by... Corina Roe/radha TD: 09/11/2016 08:05 JOB #: [id number] CC: Corina Xie M.D. DISCHARGE SUMMARY Page 1 of 1 X Theresa Walker MD X DISCHARGE SUMMARY
--- NOTE | ~2016-09-09 | EKG ---
PATIENT: GIOVANNI AHMADI UNIT #: [id number] Ventricular Rate: 93 BPM Atrial Rate: 93 BPM P-R Interval: 146 ms QRS Duration: 72 ms Q-T Interval: 358 ms QTC Calculation(Bezet): 445 ms P [place]: 69 degrees Calculated R [place]: 38 degrees Calculated T [place]: 52 degrees Diagnosis Line: Normal sinus rhythm Diagnosis Line: Normal ECG Diagnosis Line: When compared with ECG of 06-SEP-2016 00:14, Diagnosis Line: No significant change was found Diagnosis Line: Confirmed by JENNIFER MCKEON MD ([id number]) on Diagnosis Line: 09/11/2016 7:28:07 AM INTERPRETING MD: LINDA BREEN
[2016-09-09 12:27] LABS: BASOPHIL# 0.1 X10e3 (0-0.3); BASOPHIL% 0.6 % (0-2.5); EOSINOPHIL# 0.1 X10e3 (0-0.7); EOSINOPHIL% 0.9 % (0.0-7.0); HEMATOCRIT 37.9 % (35.0-45.0); HEMOGLOBIN 12.4 gm/dL (12.0-16.0); LYMPHOCYTE# 1.6 X10e3 (1.0-3.5); MEAN CELL VOLUME 91.6 FL (83-96); MEAN CORPUSCULAR HGB CONC 32.8 g/dL (30-36); MONOCYTE# 0.4 X10e3 (0-1.0); MONOCYTE% 4.1 % (3.0-12.0); NEUTROPHIL# 6.5 X10e3 (1.5-7.1); NEUTROPHIL% 75.4 % (40-75); PLATELET COUNT 384 X10e3 (140-420); RED BLOOD COUNT 4.14 X10e (3.90-5.30); RED CELL DISTRIBUTION WIDTH 13.1 % (11.0-15.5); WHITE BLOOD COUNT 8.7 X10e3 (4.0-10.5)
[2016-09-09 12:32] LABS: DIFF IND NO
[2016-09-09 12:48] LABS: INR 0.9; PARTIAL THROMBOPLASTIN TIME 21.7 SECONDS (23.5-31.3); PROTHROMBIN TIME (PATIENT) 9.9 SECONDS (10.0-11.7)
[2016-09-09 12:52] LABS: POC - TROPONIN <0.05 ng/mL (<=0.05)
[2016-09-09 12:54] LABS: ALBUMIN SERUM 3.4 g/dL (3.5-5.0); ALKALINE PHOSPHATASE 111 U/L (32-92); ALT (SGPT) 14 U/L (10-40); AMYLASE 36 U/L (0-46); AST (SGOT) 19 U/L (10-42); BILIRUBIN, DIRECT 0.1 mg/dL (0.0-0.2); BILIRUBIN,INDIRECT 0.6 mg/dL (0.0-0.9); BILIRUBIN,TOTAL 0.7 mg/dL (0.2-2.0); BLOOD UREA NITROGEN 30 mg/dL (9-23); CALCIUM SERUM 9.3 mg/dL (8.4-10.2); CARBON DIOXIDE 26 mmol/L (22-31); CHLORIDE 96 mmol/L (100-111); CREATININE SERUM 1.5 mg/dL (0.6-1.4); GLOM FILT RATE Estimated 48.6 mL/min (>60); GLUCOSE FASTING 367 mg/dL (70-110); LIPASE 67 U/L (22-51); MAGNESIUM 1.8 mg/dL (1.6-3.0); POTASSIUM 3.8 mmol/L (3.5-5.1); PROTEIN TOTAL SERUM 7.7 g/dL (6.0-8.3); SODIUM 132 mmol/L (135-145)
[2016-09-09 13:12] LABS: ALCOHOL BLOOD <5 mg/dL (0)
[2016-09-09 13:59] LABS: POC - TROPONIN <0.05 ng/mL (<=0.05)
[2016-09-09 20:07] LABS: CHOLESTEROL 309 mg/dL (0-200); HDL CHOLESTEROL 56 mg/dL (35-95); LDL/HDL RATIO 4 RATIO (0-4); TRIGLYCERIDES 188 mg/dL (10-160)
[2016-09-09 20:11] LABS: LDL CHOLESTEROL 215 mg/dL (-130)
[2016-09-10 01:15] LABS: %MB 2.9 % (0.0-4.0); MB 2.7 ng/ml
[2016-09-10 06:26] LABS: BASOPHIL# 0.1 X10e3 (0-0.3); BASOPHIL% 0.7 % (0-2.5); EOSINOPHIL% 0.1 % (0.0-7.0); HEMATOCRIT 28.6 % (35.0-45.0); LYMPHOCYTE# 2.7 X10e3 (1.0-3.5); LYMPHOCYTE% 23.2 % (17.0-45.0); MEAN CELL VOLUME 91.5 FL (83-96); MEAN CORPUSCULAR HGB CONC 32.8 g/dL (30-36); MEAN PLATELET VOLUME 8.5 FL (6.5-11.5); MONOCYTE# 1.2 X10e3 (0-1.0); MONOCYTE% 10.1 % (3.0-12.0); NEUTROPHIL# 7.6 X10e3 (1.5-7.1); NEUTROPHIL% 65.9 % (40-75); PLATELET COUNT 243 X10e3 (140-420); RED BLOOD COUNT 3.12 X10e (3.90-5.30); RED CELL DISTRIBUTION WIDTH 13.1 % (11.0-15.5); WHITE BLOOD COUNT 11.6 X10e3 (4.0-10.5)
[2016-09-10 06:29] LABS: HEMOGLOBIN 9.4 gm/dL (12.0-16.0)
[2016-09-10 06:42] LABS: DIFF IND NO
[2016-09-10 07:11] LABS: ALBUMIN SERUM 2.3 g/dL (3.5-5.0); BILIRUBIN,TOTAL 0.7 mg/dL (0.2-2.0); BUN/CREATININE RATIO 17.64; CALCIUM SERUM 7.6 mg/dL (8.4-10.2); CREATININE SERUM 1.7 mg/dL (0.6-1.4); GLOM FILT RATE Estimated 41.8 mL/min (>60); POTASSIUM 3.5 mmol/L (3.5-5.1); PROTEIN TOTAL SERUM 4.8 g/dL (6.0-8.3)
[2016-09-10 07:22] LABS: %MB 3.1 % (0.0-4.0); MB 2.2 ng/ml
[2016-09-10] MEDS ORDERED: LIPITOR40 MG PO (15:02)
== END 2016-09-10 16:31 | disposition home or self-care (01) ==
LOC: CED 11:21 → C3A PCU 19:00 → CEDOF 19:00 → CED 19:41 → CEDOF 23:13 → C3A PCU 23:13
PROVIDERS: Student in an Organized Health Care Education/Training Program
DX: R07.89 Other chest pain (principal); I12.9 Hypertensive chronic kidney disease with stage 1 through stage 4 chronic kidney disease, or unspecified chronic kidney disease; E11.22 Type 2 diabetes mellitus with diabetic chronic kidney disease; E11.21 Type 2 diabetes mellitus with diabetic nephropathy; E11.65 Type 2 diabetes mellitus with hyperglycemia; N17.9 Acute kidney failure, unspecified; K31.84 Gastroparesis; N18.9 Chronic kidney disease, unspecified; Z79.4 Long term (current) use of insulin; E66.01 Morbid (severe) obesity due to excess calories; Z68.42 Body mass index [BMI] 45.0-49.9, adult; E78.5 Hyperlipidemia, unspecified; G47.33 Obstructive sleep apnea (adult) (pediatric); R53.1 Weakness; Z79.82 Long term (current) use of aspirin; Z79.899 Other long term (current) drug therapy; Z86.73 Personal history of transient ischemic attack (TIA), and cerebral infarction without residual deficits; Z87.898 Personal history of other specified conditions; Z82.49 Family history of ischemic heart disease and other diseases of the circulatory system; Z90.49 Acquired absence of other specified parts of digestive tract; Z98.890 Other specified postprocedural states; Z88.8 Allergy status to other drugs, medicaments and biological substances
CPT/HCPCS: 36415; 71020; 76937; 77001; 78582; 80048; 80053; 80061; 80076; 82150; 82550; 82553; 82947; 83690; 83735; 83880; 84484; 84703; 85025; 85610; 85730; 93005; 96361; 96372; 96374; 96375; 99285; A9540; A9567; C1751; C9113; G0378; G0480; J0360; J1170; J1815; J2270; J2405; J2550